=== PATIENT | female | born 1980 | race Caucasian/White ===

== ENCOUNTER 2019-05-15 11:22 | Emergency (ER) | payer OTHER | END 2019-05-15 12:14 | disposition home or self-care (01) | LOC: FTE 11:22 | DX: R21 Rash and other nonspecific skin eruption (principal) | CPT/HCPCS: 99283; Z7502 ==

== ENCOUNTER 2019-06-18 19:34 | Emergency (ER) | payer OTHER ==
[2019-06-18] MEDS: FAMOTIDINE 20 MG TAB PO (20:50)
[2019-06-18] MEDS: DIPHENHYDRAMINE 50 MG CAP PO (20:50)
[2019-06-18] MEDS: DEXAMETHASONE 10 MG/ML 1 ML INJ IM (20:52)
== END 2019-06-18 20:58 | disposition home or self-care (01) ==
LOC: FTE 19:34
DX: R21 Rash and other nonspecific skin eruption (principal)
CPT/HCPCS: 96372; 99284-25